=== PATIENT | female | born 1940 | race Caucasian/White ===

== ENCOUNTER 2016-04-24 12:52 | Day surgery (SDC) | payer MEDICARE, OTHER ==
--- NOTE | ~2016-04-24 | EGD ---
EGD REPORT [facility] [address] [address] NAME: JOHNNY LIZAMA : [birth year] STATUS : PRE [facility] PAT#: [id number] AGE: 75 ADM/REG DATE : MR#: [id number] REPORT SERV DATE: 04/24/16 DICTATED BY: MINA ZHOU DATE: 04/24/16 REPORT STATUS : Draft TRANSCRIBED BY: [employer] DATE: 04/24/16 [facility] Patient Name: Johnny Lizama Date of : 1940 Attending MD: BONNIE ZHOU MD Procedure Date No Time: 04/24/2016 Procedure: Colonoscopy Indications: Iron deficiency anemia Referring MD: TITI FLORES MD Medicines: See the Anesthesia note for documentation of the administered medications Complications: No immediate complications. Estimated blood loss: None. Procedure: Pre-Anesthesia Assessment: - ASA Grade Assessment: III - A patient with severe systemic disease. - Prior to the procedure, a History and Physical was performed, and patient medications and allergies were reviewed. The patient's tolerance of previous anesthesia was also reviewed. The risks and benefits of the procedure and the sedation options and risks were discussed with the patient. All questions were answered, and informed consent was obtained. Prior Anticoagulants: The patient has taken aspirin, last dose was 3 days prior to procedure. After reviewing the risks and benefits, the patient was deemed in satisfactory condition to undergo the procedure. After I obtained informed consent, the scope was passed under direct vision. Throughout the procedure, the patient's blood pressure, pulse, and oxygen saturations were monitored continuously. The PCF [id number] was introduced through the anus and advanced to the cecum, identified by appendiceal orifice and ileocecal valve. The ileocecal valve, appendiceal orifice and rectum were photographed. The entire colon was examined. The colonoscopy was performed without difficulty. The patient tolerated the procedure well. The quality of the bowel preparation was adequate. Findings: The perianal and digital rectal examinations were normal. A few small-mouthed diverticula were found in the sigmoid colon and in the descending colon. Non-bleeding internal hemorrhoids were found, and they were Grade I (internal hemorrhoids that do not prolapse). No other significant abnormalities were identified in a careful EGD REPORT [address] [address] NAME: JOHNNY LIZAMA : [birth year] STATUS : PRE [facility]#: [id number] AGE: 75 ADM/REG DATE : MR#: [id number] REPORT SERV DATE: 04/24/16 DICTATED BY: MINA ZHOU DATE: 04/24/16 REPORT STATUS : Draft TRANSCRIBED BY: [employer] DATE: 04/24/16 examination of the remainder of the colon. Impression: - Diverticulosis in the sigmoid colon and in the descending colon. - Non-bleeding internal hemorrhoids. Recommendation: - Patient has a contact number available for emergencies. The signs and symptoms of potential delayed complications were discussed with the patient. Return to normal activities tomorrow. Written discharge instructions were provided to the patient. - High fiber diet indefinitely. - Discharge patient to home. - Continue present medications. - Repeat colonoscopy is not recommended for surveillance. Procedure Code(s): --- Professional --- 54597, Colonoscopy, flexible, proximal to splenic flexure; diagnostic, with or without collection of specimen(s) by brushing or washing, with or without colon decompression (separate procedure) Diagnosis Code(s): --- Professional --- K64.0, First degree hemorrhoids K57.30, Diverticulosis of large intestine without perforation or abscess without bleeding D50.9, Iron deficiency anemia, unspecified CPT copyright 2013 [employer]. All rights reserved. The codes documented in this report are preliminary and upon sample washer review may be revised to meet current compliance requirements. BONNIE ZHOU MD 04/24/2016 1:39 PM This report has been signed electronically. Number of Addenda: 0 Note Initiated On: 04/24/2016 1:17 PM Scope Withdrawal Time 0 hours 7 minutes 33 seconds [address] [id number]
--- NOTE | ~2016-04-24 | EGD ---
EGD REPORT [facility] [address] [address] NAME: JOHNNY LIZAMA : 40 STATUS : PRE [facility] PAT#: [id number] AGE: 75 ADM/REG DATE : MR#: [id number] REPORT SERV DATE: 04/24/16 DICTATED BY: MINA ZHOU DATE: 04/24/16 REPORT STATUS : Draft TRANSCRIBED BY: [employer] DATE: 04/24/16 [facility] Patient Name: Johnny Lizama Date of : 1940 Attending MD: BONNIE ZHOU MD Procedure Date No Time: 04/24/2016 Procedure: Upper GI endoscopy Indications: Iron deficiency anemia Referring MD: PETER KO Medicines: See the Anesthesia note for documentation of the administered medications Complications: No immediate complications. Estimated blood loss: Minimal. Procedure: Pre-Anesthesia Assessment: - ASA Grade Assessment: III - A patient with severe systemic disease. - Prior to the procedure, a History and Physical was performed, and patient medications and allergies were reviewed. The patient's tolerance of previous anesthesia was also reviewed. The risks and benefits of the procedure and the sedation options and risks were discussed with the patient. All questions were answered, and informed consent was obtained. Prior Anticoagulants: The patient has taken aspirin, last dose was 1 day prior to procedure. After reviewing the risks and benefits, the patient was deemed in satisfactory condition to undergo the procedure. After obtaining informed consent, the endoscope was passed under direct vision. Throughout the procedure, the patient's blood pressure, pulse, and oxygen saturations were monitored continuously. The GIF H190 [id number] was introduced through the mouth, and advanced to the jejunum. The upper GI endoscopy was accomplished without difficulty. The patient tolerated the procedure well. Findings: The examined jejunum was normal. An esophago-jejunal anastomosis was found at the gastroesophageal junction. This was characterized by healthy appearing mucosa. Diffuse mild erythema was found in the lower third of the esophagus. Biopsies were taken with a cold forceps for histology. No other significant abnormalities were identified in a careful examination of the esophagus. EGD REPORT [address] [address] NAME: JOHNNY LIZAMA : [birth year] STATUS : PRE [facility]#: [id number] AGE: 75 ADM/REG DATE : MR#: [id number] REPORT SERV DATE: 04/24/16 DICTATED BY: MINA ZHOU DATE: 04/24/16 REPORT STATUS : Draft TRANSCRIBED BY: [employer] DATE: 04/24/16 Impression: - Normal examined jejunum. - An esophago-jejunal anastomosis was found. - Erythema in the lower third of the esophagus. Biopsied. Recommendation: - Patient has a contact number available for emergencies. The signs and symptoms of potential delayed complications were discussed with the patient. Return to normal activities tomorrow. Written discharge instructions were provided to the patient. - Regular diet. - Discharge patient to home. - Continue present medications. - Await pathology results. Procedure Code(s): --- Professional --- 96019, Esophagogastroduodenoscopy, flexible, transoral; with biopsy, single or multiple Diagnosis Code(s): --- Professional --- Z98.0, Intestinal bypass and anastomosis status K22.9, Disease of esophagus, unspecified D50.9, Iron deficiency anemia, unspecified CPT copyright 2013 [employer]. All rights reserved. The codes documented in this report are preliminary and upon city bus driver review may be revised to meet current compliance requirements. BONNIE ZHOU MD 04/24/2016 1:21 PM This report has been signed electronically. Number of Addenda: 0 Note Initiated On: 04/24/2016 1:08 PM Scope Withdrawal Time 0 hours 0 minutes 0 seconds [id number] [id number]
[~2016-04-24 12:52] MED LIST: ARANESP100 SC; ASAB PO; ATV.5 PO; COZ50 PO; HYGROTON 25 MG25 MG PO; LOP25 PO; LOP50 PO; NEUR300 PO; NEUR600 PO; NORV10 PO; REQUIP2 PO; ULTRAM50 PO; VITAMIN B-122500 MCG SL; ZOLOFT25 MG PO
== END 2016-04-24 23:59 | disposition home or self-care (01) ==
LOC: DMU 12:52
PROVIDERS: Internal Medicine Gastroenterology
PROC: 0DB38ZX Excision of Lower Esophagus, Via Natural or Artificial Opening Endoscopic, Diagnostic (ICD-10-PCS; principal; 2016-04-24 12:30)
PROC: 0DJD8ZZ Inspection of Lower Intestinal Tract, Via Natural or Artificial Opening Endoscopic (ICD-10-PCS; 2016-04-24 12:30)
DX: K64.0 First degree hemorrhoids (principal); D50.9 Iron deficiency anemia, unspecified; K57.30 Diverticulosis of large intestine without perforation or abscess without bleeding; I10 Essential (primary) hypertension; I25.10 Atherosclerotic heart disease of native coronary artery without angina pectoris; J44.9 Chronic obstructive pulmonary disease, unspecified; F17.210 Nicotine dependence, cigarettes, uncomplicated; Z95.5 Presence of coronary angioplasty implant and graft; Z98.0 Intestinal bypass and anastomosis status; E11.9 Type 2 diabetes mellitus without complications
CPT/HCPCS: 88305; 94640